=== PATIENT | female | born 1945 | race Caucasian/White ===

== ENCOUNTER 2024-09-26 10:12 | Day surgery (SDC) | payer OTHER, SELFPAY ==
[2024-09-26 10:40] VITALS: BP 180/80; PULSE 92; RESP 12; TEMP 36.5; O2SAT 99
--- NOTE | 2024-09-26 11:07 | PM.HP.1 ---
History of Present Illness History of Present Illness Date Patient Seen: 09/26/24 Chief complaint: SDC Narrative: Screening. Last colonoscopy 13 years ago PFSH Social History Smoking Status: Never smoker alcohol intake: current Meds Home Medications and Allergies Home Medications Medication Instructions Recorded Confirmed Type methimazole 5 mg tablet 5 mg PO DAILY 09/26/24 09/26/24 History Allergies Allergy/AdvReac Type Severity Reaction Status Date / Time No Known Drug Allergies Allergy Verified 09/26/24 10:35 Exam Vital Signs (past 8 hours): - 09/26/24 10:40 Temperature 97.7 F Pulse Rate 92 H Respiratory Rate 12 Blood Pressure 180/80 H Pulse Oximetry 99 Oxygen Delivery Method Room Air Oxygen Delivery Method Room Air Narrative Exam Narrative: Oropharynx free of lesions Chest clear to auscultation percussion Cardiac exam reveals no S3 or murmur Assessment & Plan Assessment & Plan narrative: Need for follow-up screening colonoscopy with last 13 years ago. Risks, benefits, alternatives have been explained. Time-Based Coding :: [TOTAL MINUTES] spent with patient and on the chart (including review of chart, obtaining history, exam, reviewing outside data, placing orders, documenting exam and treatment plan, and counseling patient) on [DATE].
--- NOTE | 2024-09-26 11:08 | P.OP.COLON_ITS ---
Operative Date/Time/Diagnoses Date of procedure: 09/26/24 Pre-op diagnosis: See indication and findings Procedure & Clinicians Study performed: Colonoscopy Indications: Screening Surgeon: Feli Frazier Procedure Notes Procedure in detail: After informed consent was obtained the patient was placed in left lateral d ecubitus position. The video colonoscope was introduced the rectum slowly advanced cecum. Preparation was good. On slow withdrawal mucosa was carefully examined. The scope was removed. The patient tolerated the procedure well. Blood loss none Complications none Sedation mac Findings 1. Scattered diverticulosis particularly in the left side 2. Otherwise negative colonoscopy to cecum This could be considered to be Erika's last colonoscopy.
[2024-09-26 11:37] VITALS: BP 126/65; PULSE 67; RESP 16; TEMP 36.8; O2SAT 100
[2024-09-26 11:42] VITALS: BP 144/65; PULSE 77; RESP 18; O2SAT 100
[2024-09-26 11:45] VITALS: BP 139/70; PULSE 68; RESP 19; O2SAT 100
[2024-09-26 11:58] VITALS: BP 139/70; PULSE 67; RESP 12; TEMP 36.2; O2SAT 98
== END 2024-09-26 12:00 | disposition home or self-care (01) ==
PROVIDERS: PCP Internal Medicine; Referring Provider Internal Medicine Gastroenterology; Visit Provider Internal Medicine Gastroenterology
PROC: 0DJD8ZZ Inspection of Lower Intestinal Tract, Via Natural or Artificial Opening Endoscopic (ICD-10-PCS; CPT 45378; principal; 2024-09-26 11:30)
DX: Z12.11 Encounter for screening for malignant neoplasm of colon (principal); K57.30 Diverticulosis of large intestine without perforation or abscess without bleeding
CPT/HCPCS: G0121; J2704